=== PATIENT | male | born 1990 | race Caucasian/White ===

== ENCOUNTER 2017-08-29 21:28 | Emergency (ER) | payer BC, OTHER ==
[~2017-08-29] VITALS: Ht 185.4 cm; Wt 90.7 kg
--- NOTE | 2017-08-29 21:51 | NUR ---
DR. SHEARER AT BEDSIDE.
--- NOTE | 2017-08-29 22:57 | NUR ---
Patient discharged to home in stable conditon. Written and verbal after care instructions given. Patient verbalizes understanding of instructions. Pt left ER and walks in steady gait. Pt accompanied by parents. Pt denies any complaints at this time.
[2017-08-29 22:58] VITALS: BP 119/96
== END 2017-08-29 22:59 | disposition home or self-care (01) ==
LOC: ER 21:32
DX: S16.1XXA Strain of muscle, fascia and tendon at neck level, initial encounter (principal); Z88.2 Allergy status to sulfonamides; V43.52XA Car driver injured in collision with other type car in traffic accident, initial encounter; Y93.89 Activity, other specified; Y92.410 Unspecified street and highway as the place of occurrence of the external cause; Y99.8 Other external cause status
CPT/HCPCS: 72100; A4663